=== PATIENT | female | born 1970 | race African-American/Black ===

== ENCOUNTER 2021-04-22 17:12 | Observation (INO) | payer OTHER ==
[2021-04-22] MEDS ORDERED: IBUPROFEN 600 MG TABLET (FP) PO ONE ×2 (19:34→20:40)
[2021-04-22 21:22] LABS: BASO % 0.8 % (0-2.0); EOS % 1.5 % (0-4.5); HEMATOCRIT 38.8 % (32.4-45.2); HEMOGLOBIN 12.7 GM/dL (10.7-15.3); LYMPH % 51.5 % (8-40); MCH 25.9 pg (25.7-33.7); MCHC 32.8 g/dl (32.0-36.0); MONO % 9.3 % (3.8-10.2); NEUT % 36.9 % (42.8-82.8); PLATELET COUNT 230 10^3/uL (134-434); RBC 4.92 M/mm3 (3.60-5.2); RDW 13.6 % (11.6-15.6)
[2021-04-22 21:43] LABS: CHLORIDE 108 mmol/L (98-107); SODIUM 142 mmol/L (136-145)
[2021-04-22 21:45] LABS: ALBUMIN 3.9 g/dl (3.4-5.0); ANION GAP 8 MMOL/L (8-16); CALCIUM 8.8 mg/dL (8.5-10.1); CO2 26 mmol/L (21-32); GLUCOSE,RANDOM 89 mg/dL (74-106)
[2021-04-22 21:46] LABS: BLOOD UREA NITROGEN 14.4 mg/dL (7-18)
[2021-04-22] MEDS ORDERED: ASPIRIN 81 MG CHEWABLE TABLETS PO ONE (21:48)
[2021-04-22 21:49] LABS: CREATININE 0.7 mg/dL (0.55-1.3); SGOT/AST 18 U/L (15-37)
[2021-04-22 21:50] LABS: BILIRUBIN,TOTAL 0.5 mg/dL (0.2-1); TOT PROT 7.5 g/dl (6.4-8.2)
[2021-04-22] MEDS ORDERED: ASPIRIN 81 MG CHEWABLE TABLETS ONE (22:03)
[2021-04-22 22:13] LABS: ALK PHOS 66 U/L (45-117); SGPT/ALT 30 U/L (13-61)
[2021-04-23] MEDS ORDERED: FUROSEMIDE 40 MG/4 ML INJECTABLE VIAL ONE (00:18)
[2021-04-23] MEDS ORDERED: LOSARTAN POTASSIUM 50 MG TABLET PO ONE (00:47)
[2021-04-23] MEDS ORDERED: LOSARTAN POTASSIUM 50 MG TABLET ONE (01:02)
[2021-04-23 02:46] VITALS: TEMP 98.8; BMI 32.9
[2021-04-23] MEDS: INSULIN SLIDING SCALE (NOVOLOG) 1 VIAL SQ SCH ×2 (06:38→12:46)
[2021-04-23 07:56] LABS: HEMATOCRIT 38.8 % (32.4-45.2); MCH 26.4 pg (25.7-33.7); MCHC 33.5 g/dl (32.0-36.0); MEAN CELL VOLUME 78.7 fl (80-96); MEAN PLT VOLUME 9.2 fl (7.5-11.1); PLATELET COUNT 212 10^3/uL (134-434); RBC 4.93 M/mm3 (3.60-5.2); RDW 13.4 % (11.6-15.6); WHITE BLOOD COUNT 6.6 K/mm3 (4.0-10.0)
[2021-04-23 08:16] LABS: ALBUMIN 3.7 g/dl (3.4-5.0); BLOOD UREA NITROGEN 12.4 mg/dL (7-18); CALCIUM 8.7 mg/dL (8.5-10.1); MAGNESIUM 2.1 mg/dL (1.8-2.4)
[2021-04-23 08:17] LABS: CHOLESTEROL 207 mg/dL (50-200)
[2021-04-23 08:18] LABS: TRIGLYCERIDES 164 mg/dL (0-150)
[2021-04-23 08:19] LABS: CREATININE 0.6 mg/dL (0.55-1.3); LDL CHOLESTEROL (ONLY SJRH) 130 mg/dL (5-100); PHOSPHOROUS 4.1 mg/dL (2.5-4.9)
[2021-04-23 08:20] LABS: HDL CHOLESTEROL 44 mg/dL (40-60)
[2021-04-23 09:22] VITALS: BP 140/71; PULSE 60
[2021-04-23] MEDS ORDERED: HYDROCHLOROTHIAZIDE 12.5 MG CAPSULE (FP) PO SCH (10:00)
[2021-04-23] MEDS ORDERED: ACETAMINOPHEN 325 MG TABLET (FP) PO PRN (16:31)
[2021-04-23] MEDS ORDERED: LISINOPRIL 20 MG TABLET PO ONE ×2 (20:00)
[2021-04-23] MEDS ORDERED: LISINOPRIL 10 MG TABLET PO SCH (20:00)
[2021-04-23] MEDS ORDERED: ATORVASTATIN CA 40 MG TABLET (FP) PO SCH (22:00)
[2021-04-24 06:58] LABS: PH,URINE 5.5 (5.0-8.0); URINE APPEARANCE CLEAR; URINE BILIRUBIN NEGATIVE (NEGATIVE); URINE COLOR YELLOW; URINE GLUCOSE (UA) NEGATIVE (NEGATIVE); URINE KETONE NEGATIVE (NEGATIVE); URINE LEUK ESTERASE NEGATIVE (NEGATIVE); URINE NITRITE NEGATIVE (NEGATIVE); URINE PROTEIN TRACE (NEGATIVE); URINE UROBILINOGEN 0.2 mg/dL (0.2-1.0)
== END 2021-04-23 20:45 | disposition home or self-care (01) ==
LOC: JER 17:12 → JERBED 21:56 → J4W 04-23 01:31
PROVIDERS: ADMIT Internal Medicine
DX: R07.9 Chest pain, unspecified (principal); R42 Dizziness and giddiness; I10 Essential (primary) hypertension; E11.9 Type 2 diabetes mellitus without complications; E66.8 Other obesity; Z68.33 Body mass index [BMI] 33.0-33.9, adult
CPT/HCPCS: 36415; 71046-TC-FY; 80053; 80061; 81003; 82550; 82553; 82962; 83036; 83735; 84100; 84443; 84484; 85025; 85027; 85379; 93005; 93010; 93017; 93018; 93306-TC; 99285-25; C9803; G0378; U0003; U0005